=== PATIENT | female | born 1940 | race Caucasian/White ===

== ENCOUNTER 2018-01-01 19:43 | Inpatient (IN) | END 2018-01-09 13:20 | disposition home or self-care (01) | DRG 378 ==

== ENCOUNTER 2018-08-03 07:40 | Observation (INO) | payer MEDICARE, OTHER ==
--- NOTE | 2018-08-02 19:22 | PREAC ---
Date/Time of Note Date/Time of Note DATE: 08/02/18 TIME: 19:17 Anesthesia Eval and Record Evaluation Time Pre-Procedure Interview DATE: 08/02/18 TIME: 19:17 Age 77 Sex female NPO: 8 hrs Preoperative diagnosis bradycardia Planned procedure Permanent pacemaker implantation Past Medical History Past Medical History: Includes Cardio: HTN, Dyslipidemia, VA (palpitation and NSTEMI Dec 2017, elevated troponin. Heart cath Dr Radhika Marroquin Cross-NORMAL coronaries, was continued on medical management), Arrythmia (Atrial fibrillation) Endo: Diabetes, Hypothyroid Pulm: Other Neuro: Other (Cataract) Musculoskeletal: Other (Gout, Osteoporosis) GI: Other (Diverticulosis) Heme: Anemia (Hx GI bleed and 2 units blood transfusion) Surgery & Anesthesia Issues No known issue Meds Anticoagulation: No Beta Concepcion within 24 hr: No Reason Beta Concepcion not given: Pt. not on B-Concepcion, Bradycarida Reported Medications Apixaban* (Eliquis*) 2.5 Mg Tablet, 2.5 MG PO BID, TAB 08/03/18 Nitroglycerin* (Nitrostat*) 0.4 Mg Tab.subl, 0.4 MG SL Q5MIN PRN for CHEST PAIN, BOTTLE 08/03/18 Ergocalciferol (Vitamin D2) (VITAMIN D2) 2,000 Unit Tablet, 2000 UNIT PO DAILY, TAB 08/03/18 Ferrous Sulfate* (Ferrous Sulfate*) 325 Mg Tabec, 325 MG PO BID, TAB 08/03/18 Metoprolol Tartrate* (Lopressor*) 25 Mg Tab, 12.5 MG PO BID, #60 TAB 08/03/18 Hydralazine Hcl* (Hydralazine Hcl*) 50 Mg Tab, 75 MG PO TID, #120 TAB 08/03/18 Levothyroxine Sodium* (Levoxyl*) 75 Mcg Tablet, 75 MCG PO BEFORE BREAKFAST, #30 TAB 08/03/18 Losartan Potassium* (Losartan Potassium*) 100 Mg Tablet, 100 MG PO DAILY, TAB 08/03/18 Atorvastatin Calcium (Atorvastatin Calcium) 10 Mg Tablet, 10 MG PO QHS, #30 TAB 08/03/18 Allopurinol* (Allopurinol*) 100 Mg Tablet, 100 MG PO DAILY, TAB 08/03/18 Alendronate Sodium* (Fosamax*) 70 Mg Tablet, 70 MG PO Q7D, #4 TAB 08/03/18 Discontinued Reported Medications Losartan Potassium* (Losartan Potassium*) 100 Mg Tablet, 100 MG PO DAILY, TAB 01/01/18 Latanoprost (Latanoprost) 2.5 Ml Drops, 1 DROP BOTH EYES QHS, #1 BOTTLE 01/01/18 Ferrous Sulfate* (Ferrous Sulfate*) 325 Mg Tabec, 325 MG PO BID, TAB 01/01/18 Dorzolamide/Timolol* (Dorzolamide/Timolol*) 10 Ml Drops, 1 DROP BOTH EYES BID, #1 EA 01/01/18 Diphenhydramine Hcl* (Diphenhydramine Hcl*) 25 Mg Capsule, 25 MG PO Q6 PRN for ITCHING, CAP 01/01/18 Cholecalciferol* (Vitamin D3*) 1,000 Unit Tablet, 2000 PO DAILY, TAB 01/01/18 Atorvastatin (Atorvastatin) 10 Mg Tablet, 10 MG PO QHS, #30 TAB 01/01/18 Amlodipine Besylate* (Amlodipine Besylate*) 2.5 Mg Tablet, 2.5 MG PO DAILY, #30 TAB 01/01/18 Allopurinol* (Allopurinol*) 100 Mg Tablet, 100 MG PO BID, TAB 01/01/18 Alendronate Sodium* (Fosamax*) 70 Mg Tablet, 70 MG PO Q7D, #4 TAB 01/01/18 Discontinued Scripts Hydralazine Hcl* (Hydralazine Hcl*) 10 Mg Tablet, 10 MG PO Q6H PRN for above 160, #60 TAB Prov:TIO DUONG 01/09/18 Levothyroxine Sodium* (Levothyroxine Sodium*) 75 Mcg Tablet, 75 MCG PO DAILY@0600 for 30 Days, TAB Prov:TIO DUONG 01/09/18 Aspirin (Aspirin Lite-Coat) 325 Mg Tablet, 325 MG PO DAILY for 30 Days, TAB Prov:TIO DUONG 01/09/18 Current Medications Sodium Chloride 1,000 ml @ 0 mls/hr Q0M IV ; Start 08/03/18 at 06:30; Stop 08/03/18 at 18:00 Diazepam (Valium) 5 mg OC PRN PO FOR CARDIAC PROCEDURE; Start 08/03/18 at 06:30; Stop 08/03/18 at 16:00 Cefazolin Sodium 50 ml @ 100 mls/hr OC IVPB ; Start 08/03/18 at 06:30; Stop 08/03/18 at 16:00 Meds reviewed: Yes Allergies Coded Allergies: No Known Allergies (Verified Allergy, Unknown, 08/03/18) no known allergies Allergies Reviewed: Yes Labs/Studies Labs Reviewed: Reviewed by anesthesiologist test: N/A Studies: ECG, CXR Pre-procedure Exam Airway: Adequate mouth opening, Adequate thyromental dist Mallampati: Mallampati II Teeth: Normal (upper dentures are out) Lung: Normal Heart: Normal ASA Physical Status ASA physical status: 3 Emergency: None Planned Anesthetic General/MAC: MAC, TIVA Planned Pain Management Parenteral pain med, Local by surgeon Pre-operative Attestations Prior to commencing anesthesia and surgery, the patient was re-evaluated, there was verification of: *The patient's identity *The results of appropriate recent lab work and preoperative vital signs *The above evaluation not changing prior to induction *Anesthetic plan, risk benefits, alternative and complications discussed with patient/family; questions answered; patient/family understands, accepts and wishes to proceed. SHILO CONDE August 02, 2018 19:22
[~2018-08-03] VITALS: Ht 147.3 cm; Wt 55.5 kg
[2018-08-03] VITALS (23 sets, daily range): BP systolic 94–160; BP diastolic 54–85; PULSE 65–77; RESP 14–32; Ht 147.3 cm; Wt 55.5 kg
[~2018-08-03 07:40] MED LIST: ALEN70TA5 PO; ALLO100T PO; AMLO2.5T78 PO; ASPI325T29 PO; ATOR10TA65 PO; CEFAZOLIN 1 GM/50 ML (PMX) 50 ML IVPB SCH; CHOL100062 PO; DIAZEPAM 5 MG TAB PO PRN; DIPH25CA6 PO; DORZ10DR6 BOTH EYES; FER325 PO; HYDR-3670 PO; LATA2.5D2 BOTH EYES; LEVO75TA5 PO; LOSA100T15 PO; SOD CHLORIDE 0.45% 1,000 ML IV SCH
[2018-08-03] MEDS ORDERED: ALEN70TA5 PO (08:31)
[2018-08-03] MEDS ORDERED: ALLO100T PO (08:32)
[2018-08-03] MEDS ORDERED: ATOR10TA65 PO (08:32)
[2018-08-03] MEDS ORDERED: LOSA100T15 PO (08:32)
[2018-08-03] MEDS ORDERED: LEVO75TA65 PO (08:33)
[2018-08-03] MEDS ORDERED: HYDR-3672 PO (08:33)
[2018-08-03] MEDS ORDERED: FER325 PO (08:34)
[2018-08-03] MEDS ORDERED: METO-448 PO (08:34)
[2018-08-03] MEDS ORDERED: NITR0.4T39 SL (08:35)
[2018-08-03] MEDS ORDERED: ERGO2000 PO (08:35)
[2018-08-03] MEDS ORDERED: APIX2.5T PO (08:37)
[2018-08-03] MEDS ORDERED: POLYMYXIN/BACITRACIN 1L IRRIG ONE (09:32)
[2018-08-03] MEDS ORDERED: CEFAZOLIN 2 GM/50 ML (PMX) 0 ML IVPB ONE (09:33)
[2018-08-03] MEDS ORDERED: BUPIVACAINE 0.5% (SDV) 30 ML INJ ONE (09:43)
[2018-08-03] MEDS ORDERED: SOD CHLORIDE 0.9% 1,000 ML ONE (09:43)
[2018-08-03] MEDS ORDERED: LIDOCAINE 1% (MDV) 20 ML INJ ONE (09:43)
[2018-08-03] MEDS ORDERED: IODIXANOL LOCM 50 ML BTL ONE (10:08)
[2018-08-03] MEDS ORDERED: FENTAnyl 50 MCG/ML VIAL ONE (10:13)
[2018-08-03] MEDS ORDERED: CEFAZOLIN 2 GM/50 ML (PMX) 50 ML IVPB ONE (10:14)
[2018-08-03] MEDS ORDERED: PROPOFOL 20 ML ONE (10:14)
--- NOTE | 2018-08-03 10:56 | SIPON ---
Date/Time of Note Date/Time of Note DATE: 08/03/18 TIME: 10:55 Operative Report Preoperative Diagnosis Tachy-robyn, pauses, syncope Postoperative Diagnosis same Operation/Procedure Performed St. JudeVVI pacer at 60, # [id number] Surgeon see signature line cook's assistant none Anesthesia: MAC Estimated blood loss: minimal Transfusion Required none Specimen none Grafts/Implants pacer Complications none TERE ALEXANDER MD August 03, 2018 10:56
--- NOTE | 2018-08-03 11:18 | PAC ---
Date/Time of Note Date/Time of Note DATE: 08/03/18 TIME: 11:17 Post-Anesthesia Notes Post-Anesthesia Note Last documented vital signs BP 113/60 RR 72 rr 16 Temp 98 spo2 99% Vital Signs Date Temp Pulse Resp B/P (MAP) Pulse Ox O2 O2 Flow FiO2 Time Delivery Rate 08/03/18 97.8 70 16 160/72 100 Room Air 08:54 (101) Activity: WNL Respiratory function: WNL Cardiovascular function: WNL Mental status: Baseline Pain reasonably controlled: Yes Hydration appropriate: Yes Nausea/Vomiting absent: Yes SHILO CONDE August 03, 2018 11:18
[2018-08-03] MEDS ORDERED: EPHEDrine 25 MG/5 ML SYG ONE (11:27)
[2018-08-03] MEDS ORDERED: HYDROCODONE/APAP (5/325) TAB PO PRN ×2 (11:30→16:00)
[2018-08-03] MEDS ORDERED: morphine 2 MG INJ IV PRN (11:30)
[2018-08-03] MEDS ORDERED: OXYCODONE/ACETAMINOPHEN (5/325) TAB PO PRN ×2 (11:30)
[2018-08-03] MEDS ORDERED: ACETAMINOPHEN 325 MG TAB PO ONE (11:30)
[2018-08-03] MEDS ORDERED: FENTAnyl 50 MCG/ML VIAL IV PRN ×3 (11:30)
[2018-08-03] MEDS ORDERED: ONDANSETRON 4 MG INJ IV PRN ×2 (11:30→16:00)
[2018-08-03] MEDS ORDERED: CEFAZOLIN 1 GM INJ IV SCH (14:00)
[2018-08-03] MEDS: CEFAZOLIN 1 GM/50 ML (PMX) 50 ML IVPB SCH ×2 (14:06→21:23)
--- NOTE | 2018-08-03 15:33 | HP ---
Date/Time of Note Date/Time of Note DATE: 08/03/18 TIME: 15:32 Assessment/Plan VTE Prophylaxis Risk score (from Ns)>0 risk: 2 SCD applied (from Ns): Yes Pharmacological prophylaxis: NA/contraindicated Pharm contraindication: surgical contra Lines/Catheters IV [facility]from [facility] Peripheral IV Assessment/Plan Hospital Course SUBJECTIVE: s/p pacemaker.No acute distress OBJECTIVE: Vital signs-see below PHYSICAL EXAM: Constitutional:Elderly female,not in acute distress. HEENT: Head atraumatic and normocephalic. Eyes: Extraocular muscles intact. Anicteric sclerae. Pupils equal bilaterally, reactive to light. NECK: Supple without lymph node. CHEST: s/p pacemaker/site covered w/c/d/i dressing. Clear and good breath sounds equally. No wheezing. No rhonchi. HEART: S1, S2. Regular rate and rhythm. ABDOMEN: Soft/non tender with no rebound tenderness. Bowel sounds were present. EXTREMITIES: No cyanosis, clubbing or edema. NEUROLOGIC: Alert and oriented x3. No focal deficit. No sensory deficit. PSYCHOSOCIAL: No signs of depression. INTEGUMENTARY: No open wounds. ASSESSMENT AND PLAN:77 yo M w/pmh AFib/ATC eliquis,htn,dyslipidemia,OA,hypothyroidism brought in for pacemaker placement for Afib w/tachy-robyn symptoms by Tachy/robyn symptoms:S/p Pacemaker 08/03/18 -Post op mgmt per cardiology -Pain meds, post op abx has been ordered Afib -Hold Eliquis for post op contraindication -Resume BB OA -Resume home meds Hypothyroidism -Resume Synthroid HTN -stable -Resume bb Dyslipidemia -Resume statin Iron deficient anemia -Resume feso4 -Add iron panel DVP ppx: SCDs Rest of the management per clinical course Approximately 60mins spent on this H$P Patient was seen in collaboration with Result Diagram: 08/03/18 0854 08/03/18 0854 Results 24hrs Laboratory Tests Test 08/03/18 08:54 White Blood Count 4.7 #L Red Blood Count 5.63 #H Hemoglobin 11.9 L Hematocrit 39.3 Mean Corpuscular Volume 69.8 L Mean Corpuscular Hemoglobin 21.1 L Mean Corpuscular Hemoglobin Concent 30.3 L Red Cell Distribution Width 17.2 H Platelet Count 212 Mean Platelet Volume Immature Granulocytes % 0.200 Neutrophils % 51.3 Lymphocytes % 38.2 Monocytes % 7.4 Eosinophils % 2.3 Basophils % 0.6 Nucleated Red Blood Cells % 0.0 Immature Granulocytes # 0.010 Neutrophils # 2.4 Lymphocytes # 1.8 Monocytes # 0.4 Eosinophils # 0.1 Basophils # 0.0 Nucleated Red Blood Cells # 0.0 Prothrombin Time 13.3 Prothrombin Time Ratio 1.0 INR International Normalized Ratio 1.00 Activated Partial Thromboplast Time 36.1 H Sodium Level 145 H Potassium Level 4.1 Chloride Level 114 H Carbon Dioxide Level 22 Anion Gap 9 Blood Urea Nitrogen 19 Creatinine 0.90 Est Glomerular Filtrat Rate mL/min Glucose Level 103 Calcium Level 9.7 Triglycerides Level 60 Cholesterol Level 131 LDL Cholesterol, Calculated 70 HDL Cholesterol 49 Cholesterol/HDL Ratio 2.6 HPI/ROS Admit Date/Time Admit Date/Time Hx of Present Illness 77 yo M w/pmh AFib/ATC eliquis,htn,dyslipidemia,OA,hypothyroidism brought in for pacemaker placement for Afib w/tachy-robyn symptoms by .Patient underwent VVI pacemaker today and hospitalist consulted for inpatient medical management. Patient denies chest pain,palpitation, SOB,headache,dizziness,numbness,fever/chills,N/V,abd pain or other symptoms.Labs shows Hgb 11.9,otherwise unremarkable. ROS 12 point ROS negative except whats mentioned in HPI PMH/Family/Social Past Medical History SEE HPI Medications Current Medications Sodium Chloride 1,000 ml @ 0 mls/hr Q0M IV ; Start 08/03/18 at 06:30; Stop 08/03/18 at 18:00 Diazepam (Valium) 5 mg OC PRN PO FOR CARDIAC PROCEDURE Last administered on 08/03/18at 09:08; Admin Dose 5 MG; Start 08/03/18 at 06:30; Stop 08/03/18 at 16:00 Cefazolin Sodium 50 ml @ 100 mls/hr OC IVPB ; Start 08/03/18 at 06:30; Stop 08/03/18 at 16:00 Morphine Sulfate (morphine) 2 mg Q3H PRN IV SEVERE PAIN LEVEL 7-10; Start 08/03/18 at 11:30 Acetaminophen/ Hydrocodone Bitart ([place] (5/325)) 1 tab Q6H PRN PO MODERATE PAIN LEVEL 4-6; Start 08/03/18 at 11:30 Fentanyl (Sublimaze) 25 mcg PACU ORDER PRN IV MILD PAIN 1-3; Start 08/03/18 at 11:30; Stop 08/03/18 at 18:00 Fentanyl (Sublimaze) 50 mcg PACU ORDER PRN IV MOD PAIN 4-6; Start 08/03/18 at 11:30; Stop 08/03/18 at 18:00 Fentanyl (Sublimaze) 75 mcg PACU ORDER PRN IV SEVERE PAIN 7-10; Start 08/03/18 at 11:30; Stop 08/03/18 at 18:00 Oxycodone/ Acetaminophen (Percocet (5/ 325)) 1 tab PACU ORDER PRN PO .PAIN 1-5; Start 08/03/18 at 11:30; Stop 08/03/18 at 18:00 Oxycodone/ Acetaminophen (Percocet (5/ 325)) 2 tab PACU ORDER PRN PO .PAIN 6-10; Start 08/03/18 at 11:30; Stop 08/03/18 at 18:00 Ondansetron HCl (Zofran Inj) 4 mg PACU ORDER PRN IV NAUSEA/VOMITING; Start 08/03/18 at 11:30; Stop 08/03/18 at 18:00 Cefazolin Sodium 50 ml @ 100 mls/hr Q8 IVPB Last administered on 08/03/18at 14: 06; Admin Dose 100 MLS/HR; Start 08/03/18 at 14:00; Stop 08/04/18 at 13:59 Coded Allergies: No Known Allergies (Verified Allergy, Unknown, 08/03/18) no known allergies Past Surgical History SEE HPI Past Surgical Hx: other Family History Significant Family History: no pertinent family hx Social History denies alcohol, smoking or illicit drug use Smoking Status: Never smoker Exam/Review of Systems Vital Signs Vitals Vital Signs Date Temp Pulse Resp B/P (MAP) Pulse Ox O2 O2 Flow FiO2 Time Delivery Rate 08/03/18 76 17 101/54 100 Nasal 2.0 14:08 (70) Cannula 08/03/18 98.0 11:10 KRISSY MARQUEZ NP August 03, 2018 15:33
--- NOTE | 2018-08-03 15:45 | SP ---
DATE OF PROCEDURE: REASON FOR IMPLANTATION: Atrial fibrillation with tachy-robyn syndrome pauses, history of syncope. POSTPROCEDURE DIAGNOSES: 1. Atrial fibrillation with tachy-robyn syndrome pauses. 2. History of syncope. 3. During the procedure, the patient converted to sinus rhythm. PROCEDURE PERFORMED: 1. Single chamber pacemaker implantation. 2. Fluoroscopy with interpretation. PACEMAKER INFORMATION: Pacemaker device is [employer] Assurity MRI pacemaker 1272, serial #[id number]. RV lead is [employer] Tendril lead 2088TC-46 cm, serial number [id number]. Acute thresho ld R-wave of 6.8 milliseconds, lead impedance 150 ohms, threshold of 0.5 volts at 0.4 msec. Initial setting is VVI 60. DESCRIPTION OF PROCEDURE: The informed consent was obtained, the patient was brought to heart statio n in fasting condition. Anesthesiologist supervised airway and sedation. Left side of the chest was prepped and draped in usual sterile fashion. Antibiotics were given. Using #10 scalpel, a 3 cm inc ision was made. Using cautery and blunt dissection, the pocket was created through the muscle layer. Using modified Seldinger technique, the subclavian was cannulated and J-wire passed easily. Using 6-Spanish sheath at the base, the lead was advanced to RV apex and actively fixed into the apex. The slack was left inside the lead and the sheath was peeled away. The lead was sutured to the muscle wi th 0 Ethibond sutures. The lead was attached to the generator. The pocket was irrigated with antibi otic solution. Entire system was placed inside the pocket. The skin was closed with multiple layers of 2-0 Vicryl suture. Steri-Strips were placed inside of the incision. The patient tolerated the p rocedure well. As noted, she did convert to sinus rhythm by the end of the procedure and by the time the pocket was already closing and the decision was made not to put in a second lead at that time. The plan was patient to be monitored. Will resume for anticoagulation tomorrow if there is no bleedi ng. Hopefully, she will be able to be discharged tomorrow. Dictated By: TERE GOEL/MYA Conf#: [id number] [facility]#: [id number]
[2018-08-03] MEDS ORDERED: ACETAMINOPHEN 325 MG TAB PO PRN (16:00)
[2018-08-03] MEDS ORDERED: NACL 0.9% 3 ML SYG IV SCH (16:00)
[2018-08-03] MEDS: FERROUS SULFATE (EC) 325 MG TAB PO SCH (21:23)
[2018-08-03] MEDS: METOPROLOL 25 MG TAB PO SCH (21:24)
[2018-08-03] MEDS: ATORVASTATIN 10 MG TAB PO SCH (21:34)
[2018-08-04] VITALS (13 sets, daily range): BP systolic 120–159; BP diastolic 57–78; PULSE 51–94; RESP 18–22
[2018-08-04] MEDS: CEFAZOLIN 1 GM/50 ML (PMX) 50 ML IVPB SCH (05:54)
[2018-08-04] MEDS: LEVOTHYROXINE 75 MCG TAB PO SCH (07:26)
[2018-08-04] MEDS: FERROUS SULFATE (EC) 325 MG TAB PO SCH ×2 (08:19→21:18)
[2018-08-04] MEDS: METOPROLOL 25 MG TAB PO SCH ×2 (08:19→21:19)
[2018-08-04] MEDS: LOSARTAN 50 MG TAB PO SCH (08:20)
--- NOTE | 2018-08-04 08:56 | RADRPT ---
Vent Rate: 68 bpm RR Interval: 887 msec DE Interval: 136 msec QRS Duration: 90 msec QT Interval: 431 msec QTC Interval: 458 msec P-R-T [place]: 51 - 53 - 52 degrees NSR PVC IVCD Electronically Signed By: Nithin Coy
--- NOTE | 2018-08-04 08:59 | RADRPT ---
Vent Rate: 63 bpm RR Interval: 951 msec FL Interval: 151 msec QRS Duration: 90 msec QT Interval: 444 msec QTC Interval: 455 msec P-R-T [place]: 41 - 55 - 59 degrees Sinus rhythm..WITH Ventricular bigeminy. Electronically Signed By: Nithin Coy
--- NOTE | 2018-08-04 11:15 | PDOCDIS ---
Discharge Instructions CONDITION [id number] Patient Condition: [id number] Stable HOME CARE INSTRUCTIONS: [id number] Diet Instructions: [id number] Low Fat /Cholesterol FOLLOW UP/APPOINTMENTS Follow-up Plan Follow Up with Dr. Noble in his clinic in 1 to 2 weeks. Darrian Noble MD Specialty Interventional Cardiology Comments Per Dr. Noble - do not use his personal email for any correspondence. Email Art and he'll forward it to Dr. Noble. Office Address [address] [place] [address] Office Office Follow-up with primary care physician in 1 week KRISSY MARQUEZ NP August 04, 2018 11:15
[2018-08-04] MEDS ORDERED: CEPH-443 PO (11:18)
[2018-08-04] MEDS ORDERED: HYDR-4011 PO (11:18)
--- NOTE | 2018-08-04 11:21 | DS ---
Date/Time of Note Date/Time of Note DATE: 08/04/18 TIME: 11:20 Discharge Summary Admission/Discharge Info Admit Date/Time August 03, 2018 at 15:48 Discharge Date/Time Discharge Diagnosis Tachy/robyn symptoms:S/p Pacemaker 08/03/18 Afib OA Hypothyroidism HTN Dyslipidemia Iron deficient anemia Patient Condition: Stable Consults Procedures 08/03/2018: Operation performed: Operation/Procedure Performed St. JudeVVI pacer at 60, # [id number] Hx of Present Illness 77 yo M w/pmh AFib/ATC eliquis,htn,dyslipidemia,OA,hypothyroidism brought in for pacemaker placement for Afib w/tachy-robyn symptoms by .Patient underwent VVI pacemaker today and hospitalist consulted for inpatient medical management. Patient denies chest pain,palpitation, SOB,headache,dizziness,numbness,fever/chills,N/V,abd pain or other symptoms.Labs shows Hgb 11.9,otherwise unremarkable. Hospital Course x77 yo M w/pmh AFib/ATC eliquis,htn,dyslipidemia,OA,hypothyroidism brought in for pacemaker placement for Afib w/tachy-robyn symptoms by . Patient was continued on prophylactic antibiotics. She was given pain medications. Patient remained in paced rhythm with occasional PVCs. Eliquis was held for postoperative contraindication. Patient was continued on beta- blockers. She was resumed on home medications. Patient with no further pain. No chest discomfort. No palpitations. Patient will be discharged today after her pacemaker is interrogated and confirmed functioning after clearance from die maker trim. Approximately 60 m spent on coordinating the discharge on this patient. Patient was seen in collaboration with Dr. Bueno. Home Meds Reported Medications Apixaban* (Eliquis*) 2.5 Mg Tablet, 2.5 MG PO BID, TAB 08/03/18 Nitroglycerin* (Nitrostat*) 0.4 Mg Tab.subl, 0.4 MG SL Q5MIN PRN for CHEST PAIN, BOTTLE 08/03/18 Ergocalciferol (Vitamin D2) (VITAMIN D2) 2,000 Unit Tablet, 2000 UNIT PO DAILY, TAB 08/03/18 Ferrous Sulfate* (Ferrous Sulfate*) 325 Mg Tabec, 325 MG PO BID, TAB 08/03/18 Metoprolol Tartrate* (Lopressor*) 25 Mg Tab, 12.5 MG PO BID, #60 TAB 08/03/18 Hydralazine Hcl* (Hydralazine Hcl*) 50 Mg Tab, 75 MG PO TID, #120 TAB 08/03/18 Levothyroxine Sodium* (Levoxyl*) 75 Mcg Tablet, 75 MCG PO BEFORE BREAKFAST, #30 TAB 08/03/18 Losartan Potassium* (Losartan Potassium*) 100 Mg Tablet, 100 MG PO DAILY, TAB 08/03/18 Atorvastatin Calcium (Atorvastatin Calcium) 10 Mg Tablet, 10 MG PO QHS, #30 TAB 08/03/18 Allopurinol* (Allopurinol*) 100 Mg Tablet, 100 MG PO DAILY, TAB 08/03/18 Alendronate Sodium* (Fosamax*) 70 Mg Tablet, 70 MG PO Q7D, #4 TAB 08/03/18 Discontinued Reported Medications Losartan Potassium* (Losartan Potassium*) 100 Mg Tablet, 100 MG PO DAILY, TAB 01/01/18 Latanoprost (Latanoprost) 2.5 Ml Drops, 1 DROP BOTH EYES QHS, #1 BOTTLE 01/01/18 Ferrous Sulfate* (Ferrous Sulfate*) 325 Mg Tabec, 325 MG PO BID, TAB 01/01/18 Dorzolamide/Timolol* (Dorzolamide/Timolol*) 10 Ml Drops, 1 DROP BOTH EYES BID, #1 EA 01/01/18 Diphenhydramine Hcl* (Diphenhydramine Hcl*) 25 Mg Capsule, 25 MG PO Q6 PRN for ITCHING, CAP 01/01/18 Cholecalciferol* (Vitamin D3*) 1,000 Unit Tablet, 2000 PO DAILY, TAB 01/01/18 Atorvastatin (Atorvastatin) 10 Mg Tablet, 10 MG PO QHS, #30 TAB 01/01/18 Amlodipine Besylate* (Amlodipine Besylate*) 2.5 Mg Tablet, 2.5 MG PO DAILY, #30 TAB 01/01/18 Allopurinol* (Allopurinol*) 100 Mg Tablet, 100 MG PO BID, TAB 01/01/18 Alendronate Sodium* (Fosamax*) 70 Mg Tablet, 70 MG PO Q7D, #4 TAB 01/01/18 Discontinued Scripts Hydralazine Hcl* (Hydralazine Hcl*) 10 Mg Tablet, 10 MG PO Q6H PRN for above 160, #60 TAB Prov:TIO DUONG 01/09/18 Levothyroxine Sodium* (Levothyroxine Sodium*) 75 Mcg Tablet, 75 MCG PO DAILY@0600 for 30 Days, TAB Prov:TIO DUONG 01/09/18 Aspirin (Aspirin Lite-Coat) 325 Mg Tablet, 325 MG PO DAILY for 30 Days, TAB Prov:RHODATIO 01/09/18 Follow-up Plan Follow Up with Dr. Noble in his clinic in 1 to 2 weeks. Darrian Noble MD Specialty Interventional Cardiology Comments Per Dr. Noble - do not use his personal email for any correspondence. Email Art and he'll forward it to Dr. Noble. Office Address [address] [place] [id number] Office Office Follow-up with primary care physician in 1 week Primary Care Provider Not On Staff Doctor Pending Labs Laboratory Tests Test 08/03/18 17:11 08/03/18 19:04 08/04/18 05:42 White Blood Count 4.8 10^3/ul (4.8-10.8) Red Blood Count 4.50 10^6/ul (4.20-5.40) Hemoglobin 9.4 g/dl (12.0-16.0) Hematocrit 30.8 % (37.0-47.0) Mean Corpuscular 68.4 Volume fl (82.0-101.0) Mean Corpuscular 20.9 pg (29.0-33.0) Hemoglobin Mean Corpuscular 30.5 Hemoglobin Concent g/dl (32.0-37.0) Red Cell 15.5 % (11.5-14.5) Distribution Width Platelet Count 171 10^3/UL (140-415) Mean Platelet 9.6 fl (7.4-10.4) Volume Immature 0.200 Granulocytes % % (0.001-0.429) Neutrophils % 55.3 % (39.0-77.0) Lymphocytes % 32.3 % (15.0-51.0) Monocytes % 10.6 % (0.0-11.0) Eosinophils % 1.4 % (0.0-7.0) Basophils % 0.2 % (0.0-2.0) Nucleated Red Blood 0.0 Cells % /100WBC (0.0-0.0) Immature 0.010 Granulocytes # 10^3/ul (0.0-0.031) Neutrophils # 2.7 10^3/ul (1.6-7.5) Lymphocytes # 1.6 10^3/ul (0.8-2.9) Monocytes # 0.5 10^3/ul (0.3-0.9) Eosinophils # 0.1 10^3/ul (0.0-0.5) Basophils # 0.0 10^3/ul (0.0-0.1) Nucleated Red Blood 0.0 Cells # 10^3/ul (0.0-0.0) Iron Level 86 ug/dl (35-150) Total Iron Binding 238 Capacity ug/dl (241-421) Percent Iron 36 % SAT (22-52) Saturation Ferritin 234.0 ng/ml (11.1-264.0) Sodium Level 145 mmol/L (135-144) Potassium Level 3.9 mmol/L (3.5-5.1) Chloride Level 114 mmol/L (97-110) Carbon Dioxide 24 mmol/L (21-31) Level Anion Gap 7 (5-13) Blood Urea 17 mg/dl (7-20) Nitrogen Creatinine 0.90 mg/dl (0.44-1.00) Est Glomerular mL/min (>60) Filtrat Rate mL/min Glucose Level 92 mg/dl (70-220) Calcium Level 8.7 mg/dl (8.4-10.2) Magnesium Level 2.0 mg/dl (1.7-2.5) Total Bilirubin 0.7 mg/dl (0.2-1.3) Direct Bilirubin 0.00 mg/dl (0.00-0.20) Indirect Bilirubin 0.7 mg/dl (0-1.1) Aspartate Amino 26 IU/L (15-46) Transf (AST/SGOT) Alanine 16 IU/L (13-69) Aminotransferase (A LT/SGPT) Alkaline 46 IU/L (42-121) Phosphatase Total Protein 6.5 g/dl (6.1-8.1) Albumin 3.7 g/dl (3.3-4.9) Globulin 2.80 g/dl (1.3-3.2) Albumin/Globulin 1.32 Ratio Triglycerides 97 mg/dl (0-149) Level Cholesterol Level 112 mg/dl (100-200) LDL Cholesterol, 54 mg/dl Calculated HDL Cholesterol 39 mg/dl (33-92) Cholesterol/HDL 2.8 RATIO Ratio KRISSY MARQUEZ NP August 04, 2018 11:21
[2018-08-04] MEDS: ATORVASTATIN 10 MG TAB PO SCH (21:19)
[2018-08-05] VITALS (10 sets, daily range): BP systolic 119–154; BP diastolic 60–80; PULSE 53–85; RESP 18–19
[2018-08-05] MEDS: LEVOTHYROXINE 75 MCG TAB PO SCH (05:54)
[2018-08-05] MEDS: FERROUS SULFATE (EC) 325 MG TAB PO SCH (09:48)
[2018-08-05] MEDS: METOPROLOL 25 MG TAB PO SCH (09:49)
[2018-08-05] MEDS: LOSARTAN 50 MG TAB PO SCH (09:49)
--- NOTE | 2018-08-05 11:06 | QN ---
Documentation Comment Discharge was canceled yesterday as patient was noted in a flutter. Patient was then seen by web designer developer and cleared for discharge. However, patient did not have a pickup and stayed overnight. Patient currently with V paced. She is going to be discharged today. Case discussed with KRISSY Londono NP August 05, 2018 11:06
--- NOTE | 2018-08-05 11:07 | DS ---
Date/Time of Note Date/Time of Note DATE: 08/05/18 TIME: 11:07 Discharge Summary Admission/Discharge Info Admit Date/Time August 03, 2018 at 15:48 Discharge Date/Time Discharge Diagnosis Tachy/robyn symptoms:S/p Pacemaker 08/03/18 Afib OA Hypothyroidism HTN Dyslipidemia Iron deficient anemia Patient Condition: Stable Consults Consults Procedures Procedures 08/03/2018: Operation performed: Operation/Procedure Performed St[employer] JudeVVI pacer at 60, # [id number] Hx of Present Illness 77 yo M w/pmh AFib/ATC eliquis,htn,dyslipidemia,OA,hypothyroidism brought in for pacemaker placement for Afib w/tachy-robyn symptoms by .Patient underwent VVI pacemaker today and hospitalist consulted for inpatient medical management. Patient denies chest pain,palpitation, SOB,headache,dizziness,numbness,feve r/chills,N/V,abd pain or other symptoms.Labs shows Hgb 11.9,otherwise unremarkable. Hospital Course x77 yo M w/pmh AFib/ATC eliquis,htn,dyslipidemia,OA,hypothyroidism brought in for pacemaker placement for Afib w/tachy-robyn symptoms by . Patient was continued on prophylactic antibiotics. She was given pain medications. Patient remained in paced rhythm with occasional PVCs. Eliquis was held for postoperative contraindication. Patient was continued on beta- blockers. She was resumed on home medications. Patient with no further pain. No chest discomfort. No palpitations. Patient will be discharged today after her pacemaker is interrogated and confirmed functioning after clearance from corduroy brusher operator. Approximately 60 m spent on coordinating the discharge on this patient. Patient was seen in collaboration with Dr. Bueno. Home Meds Active Scripts Hydrocodone/Acetaminophen ([place] 5-325 Tablet) 1 Each Tablet, 1 EACH PO Q6 PRN for PAIN, #15 TAB Prov:MARQUEZ,KRISSY V. ENGINE BUILDUP MECHANIC 08/04/18 Cephalexin* (Keflex*) 500 Mg Capsule, 500 MG PO Q8, #15 CAP Prov:MARQUEZ,KRISSY V. ENGINE BUILDUP MECHANIC 08/04/18 Reported Medications Apixaban* (Eliquis*) 2.5 Mg Tablet, 2.5 MG PO BID, TAB 08/03/18 Nitroglycerin* (Nitrostat*) 0.4 Mg Tab.subl, 0.4 MG SL Q5MIN PRN for CHEST PAIN, BOTTLE 08/03/18 Ergocalciferol (Vitamin D2) (VITAMIN D2) 2,000 Unit Tablet, 2000 UNIT PO DAILY, TAB 08/03/18 Ferrous Sulfate* (Ferrous Sulfate*) 325 Mg Tabec, 325 MG PO BID, TAB 08/03/18 Metoprolol Tartrate* (Lopressor*) 25 Mg Tab, 12.5 MG PO BID, #60 TAB 08/03/18 Hydralazine Hcl* (Hydralazine Hcl*) 50 Mg Tab, 75 MG PO TID, #120 TAB 08/03/18 Levothyroxine Sodium* (Levoxyl*) 75 Mcg Tablet, 75 MCG PO BEFORE BREAKFAST, #30 TAB 08/03/18 Losartan Potassium* (Losartan Potassium*) 100 Mg Tablet, 100 MG PO DAILY, TAB 08/03/18 Atorvastatin Calcium (Atorvastatin Calcium) 10 Mg Tablet, 10 MG PO QHS, #30 TAB 08/03/18 Allopurinol* (Allopurinol*) 100 Mg Tablet, 100 MG PO DAILY, TAB 08/03/18 Alendronate Sodium* (Fosamax*) 70 Mg Tablet, 70 MG PO Q7D, #4 TAB 08/03/18 Discontinued Reported Medications Losartan Potassium* (Losartan Potassium*) 100 Mg Tablet, 100 MG PO DAILY, TAB 01/01/18 Latanoprost (Latanoprost) 2.5 Ml Drops, 1 DROP BOTH EYES QHS, #1 BOTTLE 01/01/18 Ferrous Sulfate* (Ferrous Sulfate*) 325 Mg Tabec, 325 MG PO BID, TAB 01/01/18 Dorzolamide/Timolol* (Dorzolamide/Timolol*) 10 Ml Drops, 1 DROP BOTH EYES BID, #1 EA 01/01/18 Diphenhydramine Hcl* (Diphenhydramine Hcl*) 25 Mg Capsule, 25 MG PO Q6 PRN for ITCHING, CAP 01/01/18 Cholecalciferol* (Vitamin D3*) 1,000 Unit Tablet, 2000 PO DAILY, TAB 01/01/18 Atorvastatin (Atorvastatin) 10 Mg Tablet, 10 MG PO QHS, #30 TAB 01/01/18 Amlodipine Besylate* (Amlodipine Besylate*) 2.5 Mg Tablet, 2.5 MG PO DAILY, #30 TAB 01/01/18 Allopurinol* (Allopurinol*) 100 Mg Tablet, 100 MG PO BID, TAB 01/01/18 Alendronate Sodium* (Fosamax*) 70 Mg Tablet, 70 MG PO Q7D, #4 TAB 01/01/18 Discontinued Scripts Hydralazine Hcl* (Hydralazine Hcl*) 10 Mg Tablet, 10 MG PO Q6H PRN for above 160, #60 TAB Prov:TRANG DUONGA 01/09/18 Levothyroxine Sodium* (Levothyroxine Sodium*) 75 Mcg Tablet, 75 MCG PO DAILY@0600 for 30 Days, TAB Prov:PAXTONTSEVLuanaTIO 01/09/18 Aspirin (Aspirin Lite-Coat) 325 Mg Tablet, 325 MG PO DAILY for 30 Days, TAB Prov:PAXTONTSEDUARTIO 01/09/18 Follow-up Plan Follow Up with Dr. Nobel in his clinic in 1 to 2 weeks. Darrian Noble MD Specialty Interventional Cardiology Comments Per Dr. Noble - do not use his personal email for any correspondence. Email Art and he'll forward it to Dr. Noble. Office Address [id number] [place] [id number] Office Office Follow-up with primary care physician in 1 week Primary Care Provider Not On Staff Doctor KRISSY MARQUEZ NP August 05, 2018 11:07
--- NOTE | 2018-08-05 18:18 | CONS ---
Assessment/Plan Assessment/Plan Hospital Course (Demo Recall) IMP: 1.POD#2 s/p PPM for bradycardia 2.PAF-now back in SR 3.h/o syncope 4.HTN 5.Dyslipidemia Recc: -ok for d/c from cardiac standpoint -contnue statin -Continue hydralazione/losartan/metoprolol -resume eliquis as outpatient -abx prophylaxis x 5 days total from time of implant -wound check in office 10-14 days Consultation Date/Type/Reason Admit Date/Time August 03, 2018 at 15:48 Initial Consult Date 08/03/18 Type of Consult Cardiology Reason for Consultation PAF Requesting Provider: KRISSY MARQUEZ NP Date/Time of Note DATE: 08/05/18 TIME: 18:13 Exam/Review of Systems Vital Signs Vitals Vital Signs Date Temp Pulse Resp B/P (MAP) Pulse Ox O2 O2 Flow FiO2 Time Delivery Rate 08/05/18 82 16:00 08/05/18 98.1 19 154/79 96 15:30 (104) 08/05/18 Room Air 12:20 08/03/18 2.0 14:08 Intake and Output 08/04/18 08/04/18 08/05/18 1515:00 23:00 07:00 IntakeIntake Total 960 ml BalanceBalance 960 ml Exam Exam Review of Systems: CONSTITUTIONAL: No fevers, chills. PULMONARY: No sob CARDIOVASCULAR: No chest pain/palpitations GASTROINTESTINAL: No nausea/vomiting. GENITOURINARY: No hematuria/dysuria. MUSCULOSKELETAL: No myagias/arthalgias. PSYCHIATRIC: The patient denies depression. NEUROLOGIC: No weakness Constitutional: alert Psych: no complaints Head: normocephalic ENMT: mucosa pink and moist Neck: supple, jvd (9 cm water) Respiratory: diminished breath sounds (at bases/B), other (L upper chest pacer pocket coverd by dressing c/d/i) Cardiovascular: regular rate and rhythm Gastrointestinal: soft, non-tender Musculoskeletal: muscle tone (normal) Extremities: edema (none) Labs Result Diagram: 08/03/18 1711 08/04/18 0542 Medications Medications Current Medications Morphine Sulfate (morphine) 2 mg Q3H PRN IV SEVERE PAIN LEVEL 7-10; Start 08/03/18 at 11:30 IV Flush (NS 3 ml) 3 ml PER PROTOCOL IV ; Start 08/03/18 at 16:00 Ondansetron HCl (Zofran Inj) 4 mg Q6H PRN IV NAUSEA/VOMITING; Start 08/03/18 at 16:00 Acetaminophen (Tylenol Tab) 650 mg Q6H PRN PO .PAIN 1-3 OR TEMP; Start 08/03/18 at 16:00 Acetaminophen/ Hydrocodone Bitart ([place] (5/325)) 1 tab Q6H PRN PO .PAIN 4-6; Start 08/03/18 at 16:00 Atorvastatin Calcium (Lipitor) 10 mg QHS PO Last administered on 08/04/18 21:19; Admin Dose 10 MG; Start 08/03/18 at 21:00 Ferrous Sulfate (Ferrous Sulfate (Ec)) 325 mg BID PO Last administered on 08/05/18 09:48; Admin Dose 325 MG; Start 08/03/18 at 21:00 Hydralazine HCl (Apresoline) 75 mg TID PO Last administered on 08/05/18 13:57; Admin Dose 75 MG; Start 08/03/18 at 21:00 Levothyroxine Sodium (Synthroid) 75 mcg BEFORE BREAKFAST PO Last administered on 08/05/18 05:54; Admin Dose 75 MCG; Start 08/04/18 at 07:00 Losartan Potassium (Cozaar) 100 mg DAILY PO Last administered on 08/05/18 09:49; Admin Dose 100 MG; Start 08/04/18 at 09:00 Metoprolol Tartrate (Lopressor) 12.5 mg BID PO Last administered on 08/05/18 09:49; Admin Dose 12.5 MG; Start 08/03/18 at 21:00 KARLIE DAVIS August 05, 2018 18:18
== END 2018-08-05 19:10 | disposition home or self-care (01) ==
LOC: SDS 07:40 → CCL 07:40 → REC 15:48 → TEL 16:35
PROVIDERS: ADMIT Family Medicine; ATTEND Family Medicine
DX: I49.5 Sick sinus syndrome (principal); I48.91 Unspecified atrial fibrillation; M19.90 Unspecified osteoarthritis, unspecified site; E03.9 Hypothyroidism, unspecified; I10 Essential (primary) hypertension; E78.5 Hyperlipidemia, unspecified; D50.9 Iron deficiency anemia, unspecified
CPT/HCPCS: 33207; 71045; 80048; 80053; 80061; 82728; 83540; 83735; 85025; 85610; 85730; 93005; G0378; J0690; J3010; J7030; Q9967

== ENCOUNTER 2018-08-11 18:11 | Emergency (ER) | payer MEDICARE, OTHER ==
[~2018-08-11] VITALS: Ht 144.8 cm; Wt 54.5 kg
[~2018-08-11 18:11] MED LIST changes: -AMLO2.5T78 PO; +APIX2.5T PO; -ASPI325T29 PO; -CEFAZOLIN 1 GM/50 ML (PMX) 50 ML IVPB SCH; +CEPH-443 PO; -CHOL100062 PO; -DIAZEPAM 5 MG TAB PO PRN; -DIPH25CA6 PO; -DORZ10DR6 BOTH EYES; +ERGO2000 PO; -HYDR-3670 PO; +HYDR-3672 PO; +HYDR-4011 PO; -LATA2.5D2 BOTH EYES; -LEVO75TA5 PO; +LEVO75TA65 PO; +METO-448 PO; +NITR0.4T39 SL; -SOD CHLORIDE 0.45% 1,000 ML IV SCH
[2018-08-11 18:14] VITALS: Ht 144.8 cm; Wt 54.5 kg
--- NOTE | 2018-08-11 20:29 | ERD ---
ER Documentation Chief Complaint Chief Complaint pt feels dizzy, low heart rate ,nausea - pacemaker was placed om August 03 HPI This is a 70-year-old woman status post PPM placement about 1 week ago for paroxysmal atrial fibrillation and tachycardia/bradycardia syndrome who was brought in by family members for suspected bradycardia. They took her blood pressure today with a convenience store blood pressure cuff and stated that the pulse from that machine was read as 30. Patient has had mild complaints of dizziness today no loss of consciousness no vomiting or diarrhea, no fevers or chills, no cough or URI symptoms. ROS All systems reviewed and are negative except as per history of present illness. Medications Home Meds Active Scripts Hydrocodone/Acetaminophen ([place] 5-325 Tablet) 1 Each Tablet, 1 EACH PO Q6 PRN for PAIN, #15 TAB Prov:KRISSY MARQUEZ V. DRY PRESS OPERATOR HELPER 08/04/18 Cephalexin* (Keflex*) 500 Mg Capsule, 500 MG PO Q8, #15 CAP Prov:MARQUEZKRISSY V. DRY PRESS OPERATOR HELPER 08/04/18 Reported Medications Apixaban* (Eliquis*) 2.5 Mg Tablet, 2.5 MG PO BID, TAB 08/03/18 Nitroglycerin* (Nitrostat*) 0.4 Mg Tab.subl, 0.4 MG SL Q5MIN PRN for CHEST PAIN, BOTTLE 08/03/18 Ergocalciferol (Vitamin D2) (VITAMIN D2) 2,000 Unit Tablet, 2000 UNIT PO DAILY, TAB 08/03/18 Ferrous Sulfate* (Ferrous Sulfate*) 325 Mg Tabec, 325 MG PO BID, TAB 08/03/18 Metoprolol Tartrate* (Lopressor*) 25 Mg Tab, 12.5 MG PO BID, #60 TAB 08/03/18 Hydralazine Hcl* (Hydralazine Hcl*) 50 Mg Tab, 75 MG PO TID, #120 TAB 08/03/18 Levothyroxine Sodium* (Levoxyl*) 75 Mcg Tablet, 75 MCG PO BEFORE BREAKFAST, #30 TAB 08/03/18 Losartan Potassium* (Losartan Potassium*) 100 Mg Tablet, 100 MG PO DAILY, TAB 08/03/18 Atorvastatin Calcium (Atorvastatin Calcium) 10 Mg Tablet, 10 MG PO QHS, #30 TAB 08/03/18 Allopurinol* (Allopurinol*) 100 Mg Tablet, 100 MG PO DAILY, TAB 08/03/18 Alendronate Sodium* (Fosamax*) 70 Mg Tablet, 70 MG PO Q7D, #4 TAB 08/03/18 Allergies Allergies: Coded Allergies: No Known Allergies (Verified Allergy, Unknown, 08/03/18) no known allergies PMhx/Soc History of paroxysmal atrial fibrillation and tachybradycardia syndrome status post permanent pacemaker about 1 week ago, osteoarthritis, hypothyroidism, hypertension, dyslipidemia, anemia History of Surgery: Yes (APPENDECTOMY) Anesthesia Reaction: No Hx Neurological Disorder: No Hx Respiratory Disorders: No Hx Cardiac Disorders: Yes (BRADYCARDIA, A FIB, CO, HTN) Hx Psychiatric Problems: No Hx Miscellaneous Medical Probl: No Hx Alcohol Use: No Hx Substance Use: No Hx Tobacco Use: No Physical Exam Vitals Vital Signs Date Temp Pulse Resp B/P (MAP) Pulse Ox O2 O2 Flow FiO2 Time Delivery Rate 08/11/18 73 20 143/66 98 Room Air 20:07 (91) 08/11/18 97.7 73 19 177/81 100 18:14 (113) Physical Exam GENERAL: Well-developed, well-nourished, appears dehydrated, afebrile HEENT: Dry mucous membranes, pink conjunctiva, no cervical spine tenderness or step-off deformities, no goiter, no jaundice or icterus, extraocular movements intact without pain. No submandibular induration, and no pharyngeal erythema NEURO: Alert and oriented 3, cranial nerves II through XII intact bilaterally, pupils equal round reactive to light, no focal deficits or facial asymmetry, sensation intact distally Strength 5/5 in upper and lower extremities bilaterally CARDIAC: Regular rate and rhythm, no murmurs rubs or gallops LUNGS: Clear bilaterally no wheezing crackles or stridor ABDOMEN: Soft nontender, no guarding, no rigidity, no rebound, no psoas sign no obturator sign. SKIN: Warm and dry to touch, no abrasions, contusions, or hematomas, no lacerations, no ecchymosis, no target lesions, and without ulcers EXTREMITIES: No clubbing cyanosis or edema, calves are bilaterally symmetrical, no Homans sign, no popliteal cord sign. Distal pulses equal and bilateral PSYCH: Normal affect without agitation or irritability Result Diagram: 08/11/18202608/11/182026 Results 24 hrs Laboratory Tests Test 08/11/18 20:27 08/11/18 21:58 White Blood Count 5.6 10^3/ul Red Blood Count 5.04 10^6/ul Hemoglobin 10.7 g/dl Hematocrit 34.7 % Mean Corpuscular Volume 68.8 fl Mean Corpuscular Hemoglobin 21.2 pg Mean Corpuscular Hemoglobin Concent 30.8 g/dl Red Cell Distribution Width 15.3 % Platelet Count 227 10^3/UL Mean Platelet Volume 10.6 fl Immature Granulocytes % 0.200 % Neutrophils % 45.1 % Lymphocytes % 44.0 % Monocytes % 7.9 % Eosinophils % 2.3 % Basophils % 0.5 % Nucleated Red Blood Cells % 0.0 /100WBC Immature Granulocytes # 0.010 10^3/ul Neutrophils # 2.5 10^3/ul Lymphocytes # 2.5 10^3/ul Monocytes # 0.4 10^3/ul Eosinophils # 0.1 10^3/ul Basophils # 0.0 10^3/ul Nucleated Red Blood Cells # 0.0 10^3/ul Sodium Level 139 mmol/L Potassium Level 4.7 mmol/L Chloride Level 106 mmol/L Carbon Dioxide Level 26 mmol/L Anion Gap 7 Blood Urea Nitrogen 19 mg/dl Creatinine 1.05 mg/dl Est Glomerular Filtrat Rate mL/min mL/min Glucose Level 104 mg/dl Calcium Level 9.7 mg/dl Total Bilirubin 0.4 mg/dl Direct Bilirubin 0.00 mg/dl Indirect Bilirubin 0.4 mg/dl Aspartate Amino Transf (AST/SGOT) 38 IU/L Alanine Aminotransferase (ALT/SGPT) 33 IU/L Alkaline Phosphatase 70 IU/L Troponin I < 0.012 ng/ml B-Type Natriuretic Peptide 497 PG/ML Total Protein 7.2 g/dl Albumin 4.2 g/dl Globulin 3.00 g/dl Albumin/Globulin Ratio 1.40 Lipase 124 U/L Urine Color STRAW Urine Clarity CLEAR Urine pH 6.0 Urine Specific [place] 1.002 Urine Ketones NEGATIVE mg/dL Urine Nitrite NEGATIVE mg/dL Urine Bilirubin NEGATIVE mg/dL Urine Urobilinogen NEGATIVE mg/dL Urine Leukocyte Esterase TRACE Luc/ul Urine Microscopic RBC 0 /HPF Urine Microscopic WBC 3 /HPF Urine Bacteria FEW /HPF Urine Hemoglobin NEGATIVE mg/dL Urine Glucose NEGATIVE mg/dL Urine Total Protein NEGATIVE mg/dl Procedures/MDM IV line was established patient was placed on manager cable rhythm strip revealed a sinus rhythm at about 80 bpm with upright P and T waves. Patient was afebrile EKG performed, read by me revealed atrial ventricular bigeminy at 77 bpm, normal axis, narrow QRS complex, no concerning ST elevations or depressions noted CBC was unremarkable, electrolytes revealed mild dehydration with a BUN/creatinine of 19/1, liver function test normal, troponin negative, BNP low, urinalysis negative for infection. 1 view chest x-ray performed, read by me revealed atelectatic changes, pacemaker in the left chest, no acute infiltrates, no pneumothorax. Observation Note: Time: 4.0 hours Family Hx: No Hypertension Evaluation: Multiple exams showed improving symptoms and no evidence of bradycardia, patient's pulse remained mostly above 70 bpm. Patient has no complaints of dizziness and blood pressure has been normal. Differential diagnoses considered, included but not limited to acute coronary syndrome, pulmonary embolism, aortic dissection, abdominal aortic aneurysm, sepsis, stroke, meningitis, encephalitis, pneumonia, appendicitis, cholecystitis, bowel obstruction, pyelonephritis, nephrolithiasis, cystitis, as well as metabolic, hematologic, and electrolyte abnormalities. As well as abscess, cellulitis, fractures, and dislocations. Patient feels much better at this time, and vital signs are normal, symptoms have improved. I did give strict instructions to return to the ED if symptoms continue or worsen, patient will otherwise follow-up with primary care physician. Patient understood instructions and agreed to plan. Disclaimer: Inadvertent spelling and grammatical errors are likely due to EHR/dictation software use and do not reflect on the overall quality of patient care. Also, please note that the electronic time recorded on this note does not necessarily reflect the actual time of the patient encounter. Departure Diagnosis: Primary Impression: Dehydration Additional Impression: Dizziness Condition: Good KATIA MAY MD Aug 11, 2018 20:29
[2018-08-11 23:02] VITALS: BP 130/73; PULSE 66; RESP 21
== END 2018-08-11 23:02 | disposition home or self-care (01) ==
LOC: E/R 18:11
DX: E86.0 Dehydration (principal); I25.2 Old myocardial infarction; I10 Essential (primary) hypertension; E03.9 Hypothyroidism, unspecified
CPT/HCPCS: 36415; 71045; 80053; 81001; 83690; 83880; 84484; 85025; 93005